=== PATIENT | female | born 1960 | race Caucasian/White ===

== ENCOUNTER → 2024-09-22 | Outpatient (CLI) | payer BC ==
--- NOTE | 2024-10-01 17:05 | MM ---
Reason for Exam: Screening (asymptomatic). Last mammogram was performed 8 year(s) and 3 month(s) ago. Patient History: Menarche at age 17. First Full-Term at age 26. Postmenopausal. Risk Values: Jesenia 5 year model risk: 1.2%. NCI Lifetime model risk: 5.7%. Prior Study Comparison: 08/01/2013 Bilateral Screening Mammogram, Unknown. 06/30/2016 Bilateral Screening Mammogram, Unknown. Tissue Density: There are scattered areas of fibroglandular density. Findings: Analyzed By CAD. The pattern is symmetrical. There is a focal asymmetry within the medial right craniocaudal projection 3:00 posterior position additional workup recommended. No suspicious groups of microcalcifications, spiculated or lobular masses, architectural distortion or other secondary signs of malignancy are mammographically apparent. Overall Assessment: Incomplete: need additional imaging evaluation, BI-RAD 0 Management: Diagnostic Mammogram of the right breast. A negative mammogram report should not preclude additional follow up of suspicious palpable abnormalities. Patient should continue monthly self breast exam. A clinical breast exam by your physician is recommended on an annual basis and results should be correlated with mammographic findings. Note on Jesenia scores and lifetime risk: 1. A Jesenia score greater than 3% is considered moderate risk. If this is the case, consider specialist referral to assess eligibility for a risk reducing agent. 2. If overall lifetime risk for the development of breast cancer is 20% or higher, the patient may qualify for future screening with alternating mammogram and breast MRI. [facility], , 10/01/2024 5:03 PM. Electronically signed and approved by: Sebastian Sullivan D.O. Radiologis
== END | disposition home or self-care (01) ==
LOC: RADMAMWWP 08:38
PROVIDERS: ATTEND Obstetrics & Gynecology
DX: Z12.31 Encounter for screening mammogram for malignant neoplasm of breast (principal); Z78.0 Asymptomatic menopausal state; R92.323 Mammographic fibroglandular density, bilateral breasts
CPT/HCPCS: 77063; 77067

== ENCOUNTER → 2024-10-03 | Outpatient (CLI) | payer BC ==
--- NOTE | 2024-10-03 13:15 | MM ---
Reason for Exam: Additional evaluation requested from abnormal screening. Last screening mammogram was performed less than 1 month ago. Patient History: Menarche at age 17. First Full-Term at age 26. Postmenopausal. Risk Values: Jesenia 5 year model risk: 1.2%. NCI Lifetime model risk: 5.7%. Tissue Density: Right: The breasts are heterogeneously dense, which may obscure small masses. Findings: Analyzed By CAD. The pattern is stable Impression no persistent suspicious nodular density is identified. Mediolateral normal. Overall Assessment: Probably benign, BI-RAD 3 Management: Diagnostic Mammogram of the right breast in 6 months. A negative mammogram report should not preclude additional follow up of suspicious palpable abnormalities. Patient should continue monthly self breast exam. A clinical breast exam by your physician is recommended on an annual basis and results should be correlated with mammographic findings. Note on Jesenia scores and lifetime risk: 1. A Jesenia score greater than 3% is considered moderate risk. If this is the case, consider specialist referral to assess eligibility for a risk reducing agent. 2. If overall lifetime risk for the development of breast cancer is 20% or higher, the patient may qualify for future screening with alternating mammogram and breast MRI. [facility], , 10/03/2024 1:12 PM. Electronically signed and approved by: Sebastian Sullivan D.O. Radiologis
== END | disposition home or self-care (01) ==
LOC: RADMAMWWP 12:42
PROVIDERS: ATTEND Obstetrics & Gynecology
DX: R92.8 Other abnormal and inconclusive findings on diagnostic imaging of breast (principal); Z78.0 Asymptomatic menopausal state; R92.331 Mammographic heterogeneous density, right breast
CPT/HCPCS: 77061; 77065

== ENCOUNTER → 2025-04-05 | Outpatient (CLI) | payer BC ==
--- NOTE | 2025-04-05 08:53 | MM ---
Reason for Exam: Follow-up at short interval from prior study. Last screening mammogram was performed 6 month(s) ago. Patient History: Menarche at age 17. First Full-Term at age 26. Postmenopausal. Risk Values: Jesenia 5 year model risk: 1.2%. NCI Lifetime model risk: 5.7%. Prior Study Comparison: 06/30/2016 Bilateral Screening Mammogram, Unknown. 09/22/2024 Bilateral MG 3D screening mammo w/cad, [facility]. 10/03/2024 Right MG 3D work up w/cad RT, [facility]. Tissue Density: Right: The breasts are heterogeneously dense, which may obscure small masses. Findings: Analyzed By CAD. Asymmetric prominent posterior depth slightly medial aspect right breast unchanged from prior study. There is a single benign-appearing round calcification in the right breast upper aspect redemonstrated. No suspicious new mass or worrisome cluster of microcalcifications in the right breast. Overall Assessment: Benign, BI-RAD 2 Management: Screening Mammogram of both breasts in 6 months. Back on bilateral annual schedule.. Results were given to the patient verbally at the time of exam. Patient should continue monthly self-breast exams. A clinical breast exam by your physician is recommended on an annual basis. This exam should not preclude additional follow-up of suspicious palpable abnormalities. Note on Jesenia scores and lifetime risk: 1. A Jesenia score greater than 3% is considered moderate risk. If this is the case, consider specialist referral to assess eligibility for a risk reducing agent. 2. If overall lifetime risk for the development of breast cancer is 20% or higher, the patient may qualify for future screening with alternating mammogram and breast MRI. [facility], , 04/05/2025 8:50 AM. Electronically signed and approved by: Clemente Knox M.D.
--- NOTE | 2025-04-05 09:46 | US ---
EXAMINATION TYPE: US abdomen complete DATE OF EXAM: 04/05/2025 COMPARISON: NONE CLINICAL INDICATION: Female, 64 years old with history of K21.9 GERD; GERD, pain TECHNIQUE: Grayscale and color Doppler imaging of the abdomen was performed. FINDINGS: EXAM MEASUREMENTS: Liver Length: 18.1 cm Gallbladder Wall: 0.26 cm CBD: 0.54 cm, color Doppler imaging was utilized to isolate the common bile duct for measurement. 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 Pancreas: Most of the pancreas is visualized and shows no gross abnormality. Liver: Mildly enlarged but with overall normal homogeneous appearance. No focal lesion seen. Gallbladder: wnl Evidence for sonographic Barnett's sign: No CBD: Upper limits of normal, except for the patient's age. Spleen: Instructor Painting notes:Appearance of hypoechoic material, possible fluid around the spleen. Right Kidney: *2 anechoic areas seen, cystic versus hydronephrosis?, larger area measures 2.7 cm in g reatest dimension. Parapelvic cysts are suspected. Left Kidney: *Hyperechoic focus seen lower pole: 0.3 x 0.4 x 0.4 cm. *Multiple cystic areas centrally , largest measuring 2.6 cm seen, ?hydronephrosis versus cystic areas. Upper IVC: wnl Abd Aorta: Portions seen appear wnl, portion of distal aorta was obscured, iliac arteries were obscu red. IMPRESSION: 1. No gallstones or biliary ductal dilatation. 2. Either parapelvic cysts within the kidneys measuring up to 2.6 cm versus hydronephrosis, left grea ter than right. The former is favored. Consider contrast-enhanced CT and correlated for any renal col ic. 3. There is hypoechoic material around portions of the spleen. The crushing mill operator questions around the s pleen. Exact etiology is unclear. This can also be further evaluated by CT. [facility], , 04/05/2025 9:43 AM
== END | disposition home or self-care (01) ==
LOC: RADMAMWWP 08:28
PROVIDERS: ATTEND Internal Medicine
DX: R92.8 Other abnormal and inconclusive findings on diagnostic imaging of breast (principal); R92.331 Mammographic heterogeneous density, right breast; K21.9 Gastro-esophageal reflux disease without esophagitis; Z78.0 Asymptomatic menopausal state; D73.89 Other diseases of spleen
CPT/HCPCS: 76700; 77061; 77065